=== PATIENT | male | born 1945 | race Caucasian/White ===

== ENCOUNTER 2016-11-19 19:26 | Emergency (ER) | payer BC, MEDICARE ==
[~2016-11-19] VITALS: Ht 182.9 cm; Wt 86.4 kg
[2016-11-19] MEDS ORDERED: VENL-193 PO (19:38)
[2016-11-19] MEDS ORDERED: ABIR500T PO (19:38)
[2016-11-19] MEDS ORDERED: DIVA500T35 PO (19:38)
[2016-11-19] MEDS ORDERED: LAMO100 PO (19:38)
[2016-11-19] MEDS ORDERED: MIDO5 PO (19:38)
[2016-11-19] MEDS ORDERED: PRED5 PO (19:38)
[2016-11-19] MEDS ORDERED: ASPI-1093 PO (19:38)
[2016-11-19 20:00] LABS: EOSINOPHILS # (AUTO) 0.22 K/uL (0.00-0.70); EOSINOPHILS % (AUTO) 3.51 % (1.0-6.0); HEMATOCRIT 33.9 % (41-53); HEMOGLOBIN 11.2 g/dL (13.5-17.5); LYMPHOCYTES # (AUTO) 0.5 K/uL (1.0-4.8); LYMPHOCYTES % (AUTO) 8.7 % (22.0-44.0); MEAN CORPUSCULAR HEMOGLOBIN 31.9 pg (26.0-34.0); MEAN CORPUSCULAR HGB CONC 33.2 G/dL (31.0-37.0); MEAN CORPUSCULAR VOLUME 96 fL (80-100); MONOCYTES # (AUTO) 0.5 K/uL (0.1-1.0); MONOCYTES % (AUTO) 7.6 % (2.0-9.0); NEUTROPHILS % (AUTO) 80.2 % (40.0-70.0); PLATELET COUNT (AUTO) 196 K/uL (150-450); RED BLOOD CELL COUNT(AUTO) 3.52 MIL/uL (4.50-5.90); RED CELL DISTRIBUTION WIDTH 13.9 % (11.5-14.5); WHITE BLOOD COUNT (AUTO) 6.2 K/uL (4.5-11.0)
[2016-11-19 20:10] LABS: ANION GAP 8 mmol/L (8-16); CALCIUM, TOTAL 8.9 mg/dL (8.8-10.5); CARBON DIOXIDE 25 mmol/L (22-29); CHLORIDE 105 mmol/L (98-107); CREATININE 1.51 mg/dL (0.60-1.30); GLOMERULAR FILTR. RATE CALC 46 mL/min (>60); POTASSIUM 3.1 mmol/L (3.5-5.1); SODIUM SERUM 138 mmol/L (136-145); UREA NITROGEN, BLOOD 9 mg/dL (7-18)
[2016-11-19 20:15] LABS: ALANINE AMINOTRANSFERASE 14 U/L (12-78); ALBUMIN 2.9 g/dL (3.4-5.0); ASPARTATE AMINOTRANSFERASE 13 U/L (15-37); BILIRUBIN,TOTAL 0.3 mg/dL (0.1-1.0); TOTAL PROTEIN, SERUM 6.2 g/dL (6.4-8.2)
[2016-11-19 21:35] LABS: RBC MORPHOLOGY COMMENT NORMAL RBC MORPH
[2016-11-19 22:06] VITALS: BP 121/71
== END 2016-11-19 22:15 | disposition home or self-care (01) ==
LOC: EMS 19:28
DX: F32.9 Major depressive disorder, single episode, unspecified (principal); F17.210 Nicotine dependence, cigarettes, uncomplicated; Z79.82 Long term (current) use of aspirin; I95.1 Orthostatic hypotension
CPT/HCPCS: 36415; 80053; 80307; 85025; 99284; G0480

== ENCOUNTER 2016-12-03 14:12 | Inpatient (IN) | payer MEDICARE, BC ==
[~2016-12-03] VITALS: Ht 182.9 cm; Wt 81.3 kg
[~2016-12-03 14:12] MED LIST: ABIR500T PO; ASPI-1093 PO; DIVA500T35 PO; LAMO100 PO; MIDO5 PO; PRED5 PO; VENL-193 PO
[2016-12-03] MEDS ORDERED: LORazepam 2 MG TABLET PO PRN (16:30)
[2016-12-03] MEDS ORDERED: HALOPERIDOL 5 MG TABLET PO PRN (16:30)
[2016-12-03] MEDS ORDERED: ZOLPIDEM TARTRATE 10 MG TABLET PO PRN (16:30)
[2016-12-03 16:42] LABS: BASOPHILS % (AUTO) 1.3 % (0.0-2.0); EOSINOPHILS % (AUTO) 2.5 % (1.0-6.0); HEMATOCRIT 33.6 % (41-53); HEMOGLOBIN 11.4 g/dL (13.5-17.5); LYMPHOCYTES # (AUTO) 1.3 K/uL (1.0-4.8); LYMPHOCYTES % (AUTO) 21.2 % (22.0-44.0); MEAN CORPUSCULAR HEMOGLOBIN 31.5 pg (26.0-34.0); MEAN CORPUSCULAR HGB CONC 33.8 G/dL (31.0-37.0); MEAN CORPUSCULAR VOLUME 93 fL (80-100); MONOCYTES # (AUTO) 0.3 K/uL (0.1-1.0); MONOCYTES % (AUTO) 4.3 % (2.0-9.0); NEUTROPHILS # (AUTO) 4.3 K/uL (1.8-7.7); NEUTROPHILS % (AUTO) 70.7 % (40.0-70.0); PLATELET COUNT (AUTO) 257 K/uL (150-450); RED CELL DISTRIBUTION WIDTH 14.1 % (11.5-14.5); WHITE BLOOD COUNT (AUTO) 6.1 K/uL (4.5-11.0)
[2016-12-03 16:50] LABS: ANION GAP 10 mmol/L (8-16); CALCIUM, TOTAL 9.2 mg/dL (8.8-10.5); CARBON DIOXIDE 24 mmol/L (22-29); CHLORIDE 106 mmol/L (98-107); CREATININE 1.62 mg/dL (0.60-1.30); GLOMERULAR FILTR. RATE CALC 42 mL/min (>60); POTASSIUM 3.6 mmol/L (3.5-5.1); SODIUM SERUM 140 mmol/L (136-145); UREA NITROGEN, BLOOD 15 mg/dL (7-18)
[2016-12-03 16:56] LABS: ALANINE AMINOTRANSFERASE 16 U/L (12-78); ALBUMIN 2.9 g/dL (3.4-5.0); ASPARTATE AMINOTRANSFERASE 14 U/L (15-37); BILIRUBIN,TOTAL 0.3 mg/dL (0.1-1.0); TOTAL PROTEIN, SERUM 6.4 g/dL (6.4-8.2)
[2016-12-03] MEDS ORDERED: LORazepam 2 MG/ML VIAL IM ONE (18:00)
[2016-12-03] MEDS ORDERED: HALOPERIDOL LACTATE 5 MG/ML VIAL IM ONE (18:00)
[2016-12-03] MEDS ORDERED: ACETAMINOPHEN 500 MG TABLET PO ONE (18:15)
[2016-12-03] MEDS ORDERED: ACETAMINOPHEN 325 MG TABLET PO PRN (20:15)
[2016-12-03 21:04] VITALS: BP 141/76
[2016-12-03 22:54] VITALS: BP 140/79
[2016-12-03] MEDS: TraMADol HCL 50 MG TABLET PO PRN (22:56)
[2016-12-04] MEDS: ASPIRIN 81 MG EC TABLET PO SCH (07:30)
[2016-12-04 07:31] LABS: CHOL/HDL RATIO 4.8 (4.2-7.3)
[2016-12-04] MEDS ORDERED: [UNRECOGNIZED DRUG - OTHER] PO SCH (09:00)
[2016-12-04] MEDS: MIDODRINE HCL 5 MG TABLET PO SCH ×2 (09:00→18:25)
[2016-12-04] MEDS: NICOTINE 14 MG/24 HOUR PATCH TD SCH (09:00)
[2016-12-04] MEDS: OLANZapine 10 MG RAPDIS TABLET PO SCH ×2 (10:00→17:00)
[2016-12-04] MEDS ORDERED: HALOPERIDOL LACTATE 5 MG/ML VIAL IM ONE (12:00)
[2016-12-04] MEDS ORDERED: LORazepam 2 MG/ML VIAL IM ONE (12:00)
[2016-12-04] MEDS ORDERED: DiphenhydrAMINE HCL 50 MG/ML VIAL IM ONE (12:00)
[2016-12-04] MEDS ORDERED: HALOPERIDOL LACTATE 5 MG/ML VIAL ONE (12:05)
[2016-12-04] MEDS ORDERED: DiphenhydrAMINE HCL 50 MG/ML VIAL ONE (12:05)
[2016-12-04] MEDS ORDERED: LORazepam 2 MG/ML VIAL ONE (12:05)
[2016-12-04] MEDS: BACITRACIN 28.4 GM OINTMENT TP SCH (12:30)
[2016-12-04] MEDS ORDERED: *PATIENT'S OWN MED [ENTER DRUG, DOSE, FREQUENCY IN COMMENTS] CLINICAL ONE ×2 (14:15)
[2016-12-04] MEDS: PredniSONE 5 MG TABLET PO SCH (17:00)
[2016-12-04 18:26] VITALS: BP 123/76
[2016-12-05] MEDS: ABIRATERONE 250 MG PO SCH (06:21)
[2016-12-05] MEDS: ASPIRIN 81 MG EC TABLET PO SCH (06:23)
[2016-12-05] MEDS: BACITRACIN 28.4 GM OINTMENT TP SCH (09:00)
[2016-12-05] MEDS: OLANZapine 10 MG RAPDIS TABLET PO SCH ×2 (09:00→16:40)
[2016-12-05] MEDS: PredniSONE 5 MG TABLET PO SCH ×2 (10:08→17:17)
[2016-12-05] MEDS: MIDODRINE HCL 5 MG TABLET PO SCH ×2 (10:08→16:33)
[2016-12-05] MEDS: NICOTINE 14 MG/24 HOUR PATCH TD SCH (10:09)
[2016-12-05 19:12] VITALS: BP 145/87
[2016-12-05 21:57] VITALS: BP 139/78
[2016-12-05] MEDS: TraMADol HCL 50 MG TABLET PO PRN (21:57)
[2016-12-06] MEDS: ABIRATERONE 250 MG PO SCH (07:13)
[2016-12-06] MEDS: ASPIRIN 81 MG EC TABLET PO SCH (07:14)
[2016-12-06] MEDS: BACITRACIN 28.4 GM OINTMENT TP SCH (08:12)
[2016-12-06] MEDS: PredniSONE 5 MG TABLET PO SCH ×2 (08:12→19:02)
[2016-12-06] MEDS: MIDODRINE HCL 5 MG TABLET PO SCH ×2 (08:12→19:01)
[2016-12-06] MEDS: NICOTINE 14 MG/24 HOUR PATCH TD SCH (08:12)
[2016-12-06] MEDS: OLANZapine 10 MG RAPDIS TABLET PO SCH ×2 (08:20→17:00)
[2016-12-06 16:57] VITALS: BP 149/97
[2016-12-06] MEDS: TraMADol HCL 50 MG TABLET PO PRN (21:00)
[2016-12-07 03:14] VITALS: BP 145/75
[2016-12-07] MEDS: TraMADol HCL 50 MG TABLET PO PRN ×2 (03:19→12:04)
[2016-12-07] MEDS: ASPIRIN 81 MG EC TABLET PO SCH (06:36)
[2016-12-07] MEDS: ABIRATERONE 250 MG PO SCH (06:38)
[2016-12-07] MEDS: MIDODRINE HCL 5 MG TABLET PO SCH ×2 (08:11→16:14)
[2016-12-07] MEDS: PredniSONE 5 MG TABLET PO SCH ×2 (08:11→16:13)
[2016-12-07] MEDS: NICOTINE 14 MG/24 HOUR PATCH TD SCH (08:12)
[2016-12-07] MEDS: OLANZapine 10 MG RAPDIS TABLET PO SCH ×2 (08:12→16:17)
[2016-12-07] MEDS: BACITRACIN 28.4 GM OINTMENT TP SCH (08:12)
[2016-12-07 12:04] VITALS: BP 156/85
[2016-12-07 16:14] VITALS: BP 146/79
[2016-12-07] MEDS: IBUPROFEN 600 MG TABLET PO PRN (16:14)
[2016-12-07 20:13] VITALS: BP 148/60
[2016-12-08 06:46] VITALS: BP 144/78
[2016-12-08] MEDS: TraMADol HCL 50 MG TABLET PO PRN ×2 (06:46→16:33)
[2016-12-08] MEDS: ABIRATERONE 250 MG PO SCH (06:46)
[2016-12-08] MEDS: ASPIRIN 81 MG EC TABLET PO SCH (06:46)
[2016-12-08 07:47] VITALS: BP 144/82
[2016-12-08 08:30] VITALS: BP 144/82
[2016-12-08] MEDS: PredniSONE 5 MG TABLET PO SCH ×2 (08:40→16:32)
[2016-12-08] MEDS: MIDODRINE HCL 5 MG TABLET PO SCH ×2 (08:40→16:27)
[2016-12-08] MEDS: NICOTINE 14 MG/24 HOUR PATCH TD SCH (08:42)
[2016-12-08] MEDS: OLANZapine 10 MG RAPDIS TABLET PO SCH ×2 (08:42→16:27)
[2016-12-08] MEDS: BACITRACIN 28.4 GM OINTMENT TP SCH (10:50)
[2016-12-08] MEDS: IBUPROFEN 600 MG TABLET PO PRN (10:53)
[2016-12-08] MEDS ORDERED: LAMO25TA66 PO (16:21)
[2016-12-08] MEDS ORDERED: OLAN10TA6 PO (16:22)
[2016-12-08] MEDS ORDERED: PRED5 PO (16:28)
[2016-12-08] MEDS ORDERED: DIVALPROEX SODIUM 500 MG DR TABLET PO SCH (17:00)
[2016-12-08] MEDS ORDERED: LamoTRIgine 25 MG TABLET PO SCH (17:00)
== END 2016-12-08 18:00 | disposition home or self-care (01) | DRG 885 ==
LOC: EMS 14:16 → 3EX 17:45
PROVIDERS: ADMIT Psychiatry & Neurology Child & Adolescent Psychiatry; ATTEND Psychiatry & Neurology Child & Adolescent Psychiatry
PROC: 5A09457 Assistance with Respiratory Ventilation, 24-96 Consecutive Hours, Continuous Positive Airway Pressure (ICD-10-PCS; principal; 2016-12-05)
DX: F25.0 Schizoaffective disorder, bipolar type (principal); E46 Unspecified protein-calorie malnutrition; C79.82 Secondary malignant neoplasm of genital organs; G20 Parkinson's disease; N18.9 Chronic kidney disease, unspecified; G47.33 Obstructive sleep apnea (adult) (pediatric); Z72.0 Tobacco use; D64.9 Anemia, unspecified; M51.26 Other intervertebral disc displacement, lumbar region; S80.211A Abrasion, right knee, initial encounter; S50.812A Abrasion of left forearm, initial encounter; X58.XXXA Exposure to other specified factors, initial encounter; Y92.89 Other specified places as the place of occurrence of the external cause; Z91.14 Patient's other noncompliance with medication regimen; Z68.24 Body mass index [BMI] 24.0-24.9, adult
CPT/HCPCS: 94660; 97161; 99285; G0480; J1200; J1630; J2060

== ENCOUNTER 2017-11-07 19:01 | Emergency (ER) | payer MEDICARE, BC ==
[~2017-11-07] VITALS: Ht 182.9 cm; Wt 84.1 kg
[~2017-11-07 19:01] MED LIST changes: -ABIR500T PO; -ASPI-1093 PO; +ASPI-1182 PO; -LAMO100 PO; +LAMO25TA66 PO; -MIDO5 PO; +MIDO5TAB23 PO; +MUPI1OIN4 NS; -VENL-193 PO
[2017-11-07] MEDS ORDERED: NALO25TA PO (20:15)
[2017-11-07] MEDS ORDERED: DOCU250C91 PO (20:15)
[2017-11-07] MEDS ORDERED: CHOL50004 PO (20:15)
[2017-11-07] MEDS ORDERED: CARB-101 PO (20:15)
[2017-11-07] MEDS ORDERED: VENL50TA44 PO (20:15)
[2017-11-07] MEDS ORDERED: SENN8.6T90 PO (20:15)
[2017-11-07] MEDS ORDERED: QUET100T PO (20:15)
[2017-11-07 20:57] LABS: BASOPHILS % (AUTO) 0.7 % (0.0-2.0); EOSINOPHILS % (AUTO) 0.4 % (1.0-6.0); HEMATOCRIT 30.8 % (41-53); HEMOGLOBIN 10.4 g/dL (13.5-17.5); LYMPHOCYTES # (AUTO) 0.8 K/uL (1.0-4.8); LYMPHOCYTES % (AUTO) 9.2 % (22.0-44.0); MEAN CORPUSCULAR HEMOGLOBIN 34.6 pg (26.0-34.0); MEAN CORPUSCULAR HGB CONC 33.7 G/dL (31.0-37.0); MEAN CORPUSCULAR VOLUME 103 fL (80-100); MONOCYTES # (AUTO) 0.4 K/uL (0.1-1.0); MONOCYTES % (AUTO) 4.7 % (2.0-9.0); NEUTROPHILS # (AUTO) 7.7 K/uL (1.8-7.7); PLATELET COUNT (AUTO) 153 K/uL (150-450); RED CELL DISTRIBUTION WIDTH 15.8 % (11.5-14.5)
[2017-11-07 21:06] LABS: CALCIUM, TOTAL 10.1 mg/dL (8.8-10.5); CREATININE 1.66 mg/dL (0.60-1.30); POTASSIUM 4.1 mmol/L (3.5-5.1)
[2017-11-07 21:15] LABS: ALBUMIN 2.6 g/dL (3.4-5.0); BILIRUBIN,TOTAL 0.4 mg/dL (0.1-1.0); TOTAL PROTEIN, SERUM 6.7 g/dL (6.4-8.2)
[2017-11-07 21:17] LABS: CARBAMAZEPINE (TEGRETOL) 0.3 mcg/mL (4.0-12.0)
[2017-11-07 21:25] LABS: PHENYTOIN (DILANTIN) 1.2 mcg/mL (10.0-20.0)
[2017-11-07 23:37] LABS: APPEARANCE,URINE CLEAR (CLEAR); BILIRUBIN,URINE NEGATIVE (NEGATIVE); GLUCOSE, URINE (UA) NEGATIVE (NEGATIVE); KETONES,URINE TRACE mg/dL (NEGATIVE); LEUKOCYTE ESTERASE ,URINE NEGATIVE (NEGATIVE); NITRATE,URINE NEGATIVE (NEGATIVE); OCCULT BLOOD,URINE NEGATIVE (NEGATIVE); PH,URINE 7.5 (5.0-8.0); PROTEIN,URINE POS 1+ (NEGATIVE); UROBILINOGEN,URINE 0.2 mg/dL (<=1.0)
[2017-11-07 23:41] LABS: AMPHET/METH SCREEN,URINE NEGATIVE (NEGATIVE); BARBITURATE SCREEN, URINE NEGATIVE (NEGATIVE); BENZODIAZEPINES SCREEN,URINE NEGATIVE (NEGATIVE); CANNABINOID SCREEN,URINE NEGATIVE (NEGATIVE); COCAINE SCREEN,URINE NEGATIVE (NEGATIVE); METHADONE SCREEN, URINE NEGATIVE (NEGATIVE); OPIATE SCREEN,URINE NEGATIVE (NEGATIVE)
[2017-11-07 23:42] LABS: PHENCYCLIDINE SCREEN,URINE NEGATIVE (NEGATIVE)
[2017-11-08 00:21] VITALS: BP 122/73
== END 2017-11-08 00:25 | disposition home or self-care (01) ==
LOC: EMS 19:02
DX: G40.909 Epilepsy, unspecified, not intractable, without status epilepticus (principal); D64.9 Anemia, unspecified; F17.210 Nicotine dependence, cigarettes, uncomplicated; F31.9 Bipolar disorder, unspecified; Z79.899 Other long term (current) drug therapy
CPT/HCPCS: 70450; 93005; 99285; 99406

== ENCOUNTER 2017-11-25 10:41 | Inpatient (IN) | payer MEDICARE, BC ==
[~2017-11-25] VITALS: Ht 177.8 cm; Wt 86.0 kg
[~2017-11-25 10:41] MED LIST changes: +CARB-101 PO; +CHOL50004 PO; +DOCU250C91 PO; -MIDO5TAB23 PO; -MUPI1OIN4 NS; +NALO25TA PO; -PRED5 PO; +QUET100T PO; +SENN8.6T90 PO; +VENL50TA44 PO
[2017-11-25] MEDS ORDERED: SODIUM CHLORIDE 0.9% 1,000 ML IV ONE ×2 (10:56→11:45)
[2017-11-25] MEDS ORDERED: ALBUTEROL SULFATE 2.5 MG/0.5 ML NEB SOLUTION NEB ONE (11:00)
[2017-11-25] MEDS ORDERED: IPRATROPIUM BROMIDE 0.5 MG/2.5 ML NEB SOLUTION NEB ONE (11:00)
[2017-11-25] MEDS ORDERED: ACET-48 PO (11:04)
[2017-11-25] MEDS ORDERED: TAMS0.4C32 PO (11:04)
[2017-11-25] MEDS ORDERED: ATOR40TA28 PO (11:04)
[2017-11-25] MEDS ORDERED: MIDO5TAB23 PO (11:04)
[2017-11-25] MEDS ORDERED: OS500 PO (11:04)
[2017-11-25] MEDS ORDERED: OMEG-135 PO (11:04)
[2017-11-25] MEDS ORDERED: NAPR-58 PO (11:15)
[2017-11-25] MEDS ORDERED: HYDR-309 PO (11:15)
[2017-11-25] MEDS ORDERED: MOM30 PO (11:15)
[2017-11-25] MEDS ORDERED: ACETAMINOPHEN 1000 MG/ISO-OSM 100 ML IV ONE (11:45)
[2017-11-25 11:55] LABS: ABG A-A DIFF O2 534.1 mmHg (10-20.0); ABG METHEMOGLOBIN 0.5 % (0.0-1.5); ABG OXYGEN CONTENT 15.3 mL/dL (15.0-23.0); ABG OXYGEN SATURATION 98.6 % (95.0-98.0); ABG OXYHEMOGLOBIN 97.1 % (94.0-100.0); ABG PCO2 41 mmHg (35-45); ABG PH 7.369 (7.35-7.450); O2 DEVICE,BLOOD GAS NON REBREATHER (ROOM AIR); PO2, ARTERIAL BG 135.7 mmHg (75.0-83.0); SITE, BLOOD GAS LFT RADIAL; SOURCE, BLOOD GAS ARTERIAL; TEMPERATURE, FAHRENHEIT, BG 99.9 FAHREN (96.0-98.6)
[2017-11-25] MEDS ORDERED: 0.9% SODIUM CHLORIDE 5 ML NEB SOLUTION NEB ONE (11:57)
[2017-11-25 12:02] LABS: BASOPHILS % (AUTO) 0.3 % (0.0-2.0); EOSINOPHILS % (AUTO) 0 % (1.0-6.0); HEMATOCRIT 32.6 % (41-53); HEMOGLOBIN 10.9 g/dL (13.5-17.5); LYMPHOCYTES # (AUTO) 0.7 K/uL (1.0-4.8); LYMPHOCYTES % (AUTO) 5.6 % (22.0-44.0); MEAN CORPUSCULAR HGB CONC 33.4 G/dL (31.0-37.0); MEAN CORPUSCULAR VOLUME 105 fL (80-100); MONOCYTES # (AUTO) 0.8 K/uL (0.1-1.0); MONOCYTES % (AUTO) 6.6 % (2.0-9.0); PLATELET COUNT (AUTO) 161 K/uL (150-450); RED BLOOD CELL COUNT(AUTO) 3.11 MIL/uL (4.50-5.90); RED CELL DISTRIBUTION WIDTH 15.9 % (11.5-14.5)
[2017-11-25 12:03] LABS: NEUTROPHILS % (AUTO) 87.5 % (40.0-70.0)
[2017-11-25] MEDS ORDERED: AZITHROMYCIN 500 MG/NS 250 ML IV ONE (12:15)
[2017-11-25] MEDS ORDERED: CefTRIAXone SODIUM 1 GM in DEXTROSE 5%-WATER 10 ML IV ONE (12:15)
[2017-11-25] MEDS ORDERED: ACETAMINOPHEN 325 MG TABLET PO PRN ×2 (12:15→16:45)
[2017-11-25] MEDS ORDERED: 0.9% SODIUM CHLORIDE 10 ML SYRINGE IVP PRN (12:15)
[2017-11-25 12:19] LABS: APPEARANCE,URINE CLOUDY (CLEAR); BILIRUBIN,URINE NEGATIVE (NEGATIVE); GLUCOSE, URINE (UA) NEGATIVE (NEGATIVE); KETONES,URINE TRACE mg/dL (NEGATIVE); LEUKOCYTE ESTERASE ,URINE SMALL (NEGATIVE); NITRATE,URINE NEGATIVE (NEGATIVE); OCCULT BLOOD,URINE LARGE (NEGATIVE); PH,URINE 6.5 (5.0-8.0); PROTEIN,URINE SEE CONFIRM (NEGATIVE)
[2017-11-25 12:21] LABS: LACTIC ACID 1.3 mmol/L (0.4-2.0)
[2017-11-25 12:26] LABS: CALCIUM, TOTAL 8.8 mg/dL (8.8-10.5); CREATININE 1.83 mg/dL (0.60-1.30)
[2017-11-25 12:30] LABS: ALBUMIN 1.9 g/dL (3.4-5.0); BILIRUBIN,TOTAL 0.3 mg/dL (0.1-1.0)
[2017-11-25 12:33] LABS: RBC,URINE >100 /HPF (0-2); SULFOSALICYLIC ACID,URINE 3+ (Negative)
[2017-11-25 12:34] LABS: BACTERIA,URINE Few /HPF (None Seen)
[2017-11-25 12:36] LABS: SQUAMOUS EPITHELIAL CELL,UR Rare /LPF (None Seen)
[2017-11-25 16:00] VITALS: BP 140/86
[2017-11-25] MEDS ORDERED: ZOLPIDEM TARTRATE 5 MG TABLET PO PRN (16:45)
[2017-11-25] MEDS ORDERED: *CLINICAL-LEVOFLOXACIN IVPB DOSING CLINICAL ONE (16:45)
[2017-11-25] MEDS ORDERED: MORPHINE SULFATE 2 MG/ML SYRINGE IVP PRN (16:45)
[2017-11-25] MEDS ORDERED: ONDANSETRON HCL 4 MG/2 ML VIAL IVP PRN (16:45)
[2017-11-25] MEDS ORDERED: LORazepam 2 MG/ML VIAL IVP PRN (16:45)
[2017-11-25] MEDS ORDERED: DEXTROSE 5%-0.45% SODIUM CHL 1,000 ML IV ONE (16:45)
[2017-11-25] MEDS ORDERED: BISACODYL 10 MG RECTAL RECTAL SUPPOSITORY PR PRN (16:45)
[2017-11-25] MEDS ORDERED: MAGNESIUM HYDROXIDE SUSPENSION 30 ML UDCUP PO PRN (16:45)
[2017-11-25] MEDS ORDERED: HydrALAZINE HCL 20 MG/ML VIAL IVP PRN (16:45)
[2017-11-25 17:15] LABS: CREATINE KINASE, TOTAL 47 U/L (39-308)
[2017-11-25] MEDS ORDERED: HEPARIN SODIUM 25000 UNITS/D5W 250 ML IV PRN (19:59)
[2017-11-25 20:00] VITALS: BP 145/78
[2017-11-25] MEDS ORDERED: HEPARIN SODIUM,PORCINE 5,000 UNITS/ML VIAL IVP PRN ×2 (20:00)
[2017-11-25] MEDS ORDERED: HEPARIN SODIUM,PORCINE 5,000 UNITS/ML VIAL IVP ONE (20:00)
[2017-11-25] MEDS ORDERED: VANCOMYCIN HCL 1 GM/D5% WATER 200 ML IV ONE (20:30)
[2017-11-25 20:37] LABS: HEMATOCRIT 32.7 % (41-53); HEMOGLOBIN 10.8 g/dL (13.5-17.5); MEAN CORPUSCULAR HEMOGLOBIN 34.6 pg (26.0-34.0); MEAN CORPUSCULAR VOLUME 105 fL (80-100); PLATELET COUNT (AUTO) 143 K/uL (150-450); RED BLOOD CELL COUNT(AUTO) 3.11 MIL/uL (4.50-5.90); RED CELL DISTRIBUTION WIDTH 16.4 % (11.5-14.5)
[2017-11-25 20:48] LABS: INR 1.2 (0.9-1.1)
[2017-11-25] MEDS: DOCUSATE SODIUM 100 MG CAPSULE PO SCH (21:09)
[2017-11-25] MEDS: MIDODRINE HCL 5 MG TABLET PO SCH (21:09)
[2017-11-25] MEDS: CALCIUM OYSTER SHELL 500 MG TABLET PO SCH (21:10)
[2017-11-25] MEDS: CARBIDOPA/LEVODOPA 25-100 MG TABLET PO SCH (21:10)
[2017-11-25] MEDS: TAMSULOSIN HCL 0.4 MG CAPSULE PO SCH (21:10)
[2017-11-25] MEDS: LamoTRIgine 100 MG TABLET PO SCH (21:10)
[2017-11-25] MEDS: DIVALPROEX SODIUM 500 MG DR TABLET PO SCH (21:10)
[2017-11-25] MEDS: ATORVASTATIN CALCIUM 40 MG TABLET PO SCH (21:10)
[2017-11-25 21:31] LABS: BAND NEUTROPHILS % (MANUAL) 19 % (0-5); LYMPHOCYTES % (MANUAL) 10 % (22-44); MONOCYTES % (MANUAL) 6 % (2-9); PLATELET MORPHOLOGY COMMENT GIANT PLTS PRESENT; SEGMENTED NEUTROPHILS % 65 % (40-70); WBC MORPHOLOGY TOXIC VACUOLATION
[2017-11-25] MEDS: PIPERACILLIN SODIUM/TAZOBACTAM 2.25 GM in DEXTROSE 5%-WATER 50 ML IV SCH (22:30)
[2017-11-25 23:46] LABS: CREATINE KINASE, TOTAL 58 U/L (39-308)
[2017-11-26] VITALS (7 sets, daily range): BP systolic 95–160; BP diastolic 59–97
[2017-11-26] MEDS ORDERED: HEPARIN SODIUM,PORCINE 5,000 UNITS/ML VIAL SQ SCH
[2017-11-26] MEDS: PIPERACILLIN SODIUM/TAZOBACTAM 2.25 GM in DEXTROSE 5%-WATER 50 ML IV SCH ×4 (03:52→22:24)
[2017-11-26 05:22] LABS: HEMATOCRIT 30.3 % (41-53); MEAN CORPUSCULAR HEMOGLOBIN 34.7 pg (26.0-34.0); MEAN CORPUSCULAR HGB CONC 33.2 G/dL (31.0-37.0); MEAN CORPUSCULAR VOLUME 105 fL (80-100); PLATELET COUNT (AUTO) 143 K/uL (150-450)
[2017-11-26 05:27] LABS: ALANINE AMINOTRANSFERASE 3 U/L (12-78); ALBUMIN 1.7 g/dL (3.4-5.0); ALKALINE PHOSPHATASE 54 U/L (46-116); ANION GAP 6 mmol/L (8-16); ASPARTATE AMINOTRANSFERASE 10 U/L (15-37); BILIRUBIN,TOTAL 0.3 mg/dL (0.1-1.0); CALCIUM, TOTAL 8.8 mg/dL (8.8-10.5); CARBON DIOXIDE 25 mmol/L (22-29); CHLORIDE 116 mmol/L (98-107); CREATINE KINASE, TOTAL 44 U/L (39-308); CREATININE 1.55 mg/dL (0.60-1.30); GLOMERULAR FILTR. RATE CALC 44 mL/min (>60); GLUCOSE,RANDOM 191 mg/dL (70-110); PHOSPHORUS 1.9 mg/dL (2.5-4.9); POTASSIUM 3.6 mmol/L (3.5-5.1); SODIUM SERUM 147 mmol/L (136-145); THYROID STIMULATING HORMONE 0.87 uIU/mL (0.36-3.74); TOTAL PROTEIN, SERUM 5.9 g/dL (6.4-8.2); UREA NITROGEN, BLOOD 21 mg/dL (7-18)
[2017-11-26 05:44] LABS: B-TYPE NATRIURETIC PEPTIDE 110 pg/mL (0-100)
[2017-11-26] MEDS: VANCOMYCIN HCL 1 GM/D5% WATER 200 ML IV SCH (08:22)
[2017-11-26 08:25] LABS: ABG BASE EXCESS -4.4 mmol/L (-2.0-3.0); ABG CARBOXYHEMOGLOBIN 0.3 % (0.0-1.5); ABG HCO3 21.4 mmol/L (22.0-26.0); ABG METHEMOGLOBIN 0.1 % (0.0-1.5); ABG OXYGEN SATURATION 96.2 % (95.0-98.0); ABG OXYHEMOGLOBIN 95.8 % (94.0-100.0); ABG PCO2 31 mmHg (35-45); ABG PH 7.425 (7.35-7.450); ABG TOTAL HEMOGLOBIN 10.3 G/dL (12.0-18.0); O2 DEVICE,BLOOD GAS BIPAP (ROOM AIR); PO2, ARTERIAL BG 81.2 mmHg (75.0-83.0); SITE, BLOOD GAS RT RADIAL; SOURCE, BLOOD GAS ARTERIAL; TEMPERATURE, FAHRENHEIT, BG 98.9 FAHREN (96.0-98.6)
[2017-11-26 08:27] LABS: BAND NEUTROPHILS % (MANUAL) 18 % (0-5); LYMPHOCYTES % (MANUAL) 3 % (22-44); MONOCYTES % (MANUAL) 1 % (2-9); SEGMENTED NEUTROPHILS % 78 % (40-70)
[2017-11-26] MEDS: LamoTRIgine 100 MG TABLET PO SCH ×2 (09:00→20:32)
[2017-11-26] MEDS: MIDODRINE HCL 5 MG TABLET PO SCH ×2 (09:00→20:32)
[2017-11-26] MEDS: DIVALPROEX SODIUM 500 MG DR TABLET PO SCH ×2 (10:10→20:32)
[2017-11-26] MEDS: CARBIDOPA/LEVODOPA 25-100 MG TABLET PO SCH ×2 (10:10→20:31)
[2017-11-26] MEDS: DOCUSATE SODIUM 100 MG CAPSULE PO SCH ×2 (10:11→20:32)
[2017-11-26] MEDS: CALCIUM OYSTER SHELL 500 MG TABLET PO SCH ×2 (10:11→20:31)
[2017-11-26] MEDS: PANTOPRAZOLE SODIUM 40 MG DR TABLET PO SCH (10:12)
[2017-11-26] MEDS: CHOLECALCIFEROL (VIT D3) 5,000 UNITS CAPSULE PO SCH (10:12)
[2017-11-26] MEDS: ASPIRIN 81 MG EC TABLET PO SCH (10:12)
[2017-11-26] MEDS ORDERED: CefTRIAXone SODIUM 1 GM in DEXTROSE 5%-WATER 10 ML IV SCH (13:00)
[2017-11-26] MEDS ORDERED: SODIUM CHLORIDE 0.9% 500 ML IV ONE (13:27)
[2017-11-26] MEDS: AZITHROMYCIN 500 MG/NS 250 ML IV SCH (14:09)
[2017-11-26] MEDS: ATORVASTATIN CALCIUM 40 MG TABLET PO SCH (20:31)
[2017-11-26] MEDS: TAMSULOSIN HCL 0.4 MG CAPSULE PO SCH (20:32)
[2017-11-27] MEDS: PIPERACILLIN SODIUM/TAZOBACTAM 2.25 GM in DEXTROSE 5%-WATER 50 ML IV SCH ×4 (04:23→22:40)
[2017-11-27 07:44] VITALS: BP 162/74
[2017-11-27] MEDS: VANCOMYCIN HCL 1 GM/D5% WATER 200 ML IV SCH (09:26)
[2017-11-27] MEDS: CARBIDOPA/LEVODOPA 25-100 MG TABLET PO SCH ×2 (09:35→19:52)
[2017-11-27] MEDS: DIVALPROEX SODIUM 500 MG DR TABLET PO SCH ×2 (09:35→19:51)
[2017-11-27] MEDS: CALCIUM OYSTER SHELL 500 MG TABLET PO SCH ×2 (09:35→19:51)
[2017-11-27] MEDS: DOCUSATE SODIUM 100 MG CAPSULE PO SCH ×2 (09:36→19:51)
[2017-11-27] MEDS: PANTOPRAZOLE SODIUM 40 MG DR TABLET PO SCH (09:36)
[2017-11-27] MEDS: CHOLECALCIFEROL (VIT D3) 5,000 UNITS CAPSULE PO SCH (09:36)
[2017-11-27] MEDS: MIDODRINE HCL 5 MG TABLET PO SCH ×2 (09:36→19:51)
[2017-11-27] MEDS: LamoTRIgine 100 MG TABLET PO SCH ×2 (09:37→19:51)
[2017-11-27] MEDS: ASPIRIN 81 MG EC TABLET PO SCH (09:40)
[2017-11-27 11:14] LABS: CALCIUM, TOTAL 9.4 mg/dL (8.8-10.5); CREATININE 1.56 mg/dL (0.60-1.30)
[2017-11-27 11:17] LABS: POTASSIUM 2.8 mmol/L (3.5-5.1)
[2017-11-27] MEDS ORDERED: LAMO100 PO (11:30)
[2017-11-27] MEDS ORDERED: VENL-193 PO (11:30)
[2017-11-27 11:40] VITALS: BP 156/100
[2017-11-27] MEDS ORDERED: DEXTROSE 10%-WATER 1,000 ML IV ONE (13:30)
[2017-11-27 15:38] VITALS: BP 163/90
[2017-11-27] MEDS: POTASSIUM CHL 10 MEQ/WATER 50 ML IV SCH ×3 (16:00→22:40)
[2017-11-27] MEDS: AZITHROMYCIN 500 MG/NS 250 ML IV SCH (17:37)
[2017-11-27] MEDS: ATORVASTATIN CALCIUM 40 MG TABLET PO SCH (19:51)
[2017-11-27] MEDS: TAMSULOSIN HCL 0.4 MG CAPSULE PO SCH (19:52)
[2017-11-27 20:04] VITALS: BP 161/92
[2017-11-28 00:21] VITALS: BP 124/72
[2017-11-28] MEDS: POTASSIUM CHL 10 MEQ/WATER 50 ML IV SCH (02:15)
[2017-11-28 04:45] VITALS: BP 154/73
[2017-11-28] MEDS: PIPERACILLIN SODIUM/TAZOBACTAM 2.25 GM in DEXTROSE 5%-WATER 50 ML IV SCH ×4 (04:51→22:10)
[2017-11-28 07:05] LABS: CALCIUM, TOTAL 9.2 mg/dL (8.8-10.5); CREATININE 1.39 mg/dL (0.60-1.30); POTASSIUM 3.2 mmol/L (3.5-5.1)
[2017-11-28 07:34] VITALS: BP 161/78
[2017-11-28] MEDS: VANCOMYCIN HCL 1 GM/D5% WATER 200 ML IV SCH (08:17)
[2017-11-28] MEDS: CHOLECALCIFEROL (VIT D3) 5,000 UNITS CAPSULE PO SCH (08:18)
[2017-11-28] MEDS: CARBIDOPA/LEVODOPA 25-100 MG TABLET PO SCH ×2 (08:18→20:42)
[2017-11-28] MEDS: DIVALPROEX SODIUM 500 MG DR TABLET PO SCH ×2 (08:19→20:43)
[2017-11-28] MEDS: DOCUSATE SODIUM 100 MG CAPSULE PO SCH ×2 (08:19→20:43)
[2017-11-28] MEDS: PANTOPRAZOLE SODIUM 40 MG DR TABLET PO SCH (08:19)
[2017-11-28] MEDS: CALCIUM OYSTER SHELL 500 MG TABLET PO SCH ×2 (08:19→20:43)
[2017-11-28] MEDS: ASPIRIN 81 MG EC TABLET PO SCH (08:19)
[2017-11-28] MEDS: LamoTRIgine 100 MG TABLET PO SCH ×2 (08:19→20:43)
[2017-11-28] MEDS: MIDODRINE HCL 5 MG TABLET PO SCH ×2 (08:29→21:00)
[2017-11-28] MEDS ORDERED: POTASSIUM CHLORIDE 10% 40 MEQ/30 ML LIQUID UDCUP PO ONE (10:00)
[2017-11-28] MEDS: HYDROCODONE/ACETAMINOPHEN 5-325 MG TABLET PO PRN ×2 (11:08→22:20)
[2017-11-28] MEDS ORDERED: AmLODIPine BESYLATE 5 MG TABLET PO ONE (12:30)
[2017-11-28] MEDS: AZITHROMYCIN 500 MG/NS 250 ML IV SCH (14:40)
[2017-11-28 15:34] VITALS: BP 159/99
[2017-11-28 20:09] VITALS: BP 184/99
[2017-11-28] MEDS: ATORVASTATIN CALCIUM 40 MG TABLET PO SCH (20:43)
[2017-11-28] MEDS: TAMSULOSIN HCL 0.4 MG CAPSULE PO SCH (20:43)
[2017-11-29 00:06] VITALS: BP 148/92
[2017-11-29] MEDS ORDERED: SODIUM CHLORIDE 0.9% 100 ML ONE (03:52)
[2017-11-29] MEDS: PIPERACILLIN SODIUM/TAZOBACTAM 2.25 GM in DEXTROSE 5%-WATER 50 ML IV SCH ×2 (03:54→11:05)
[2017-11-29 06:00] VITALS: BP 111/74
[2017-11-29 07:40] LABS: CALCIUM, TOTAL 9.3 mg/dL (8.8-10.5); CREATININE 1.33 mg/dL (0.60-1.30); POTASSIUM 3.8 mmol/L (3.5-5.1); VANCOMYCIN,RANDOM 15.4 mcg/mL (25.0-50.0)
[2017-11-29 07:41] VITALS: BP 123/56
[2017-11-29] MEDS ORDERED: AmLODIPine BESYLATE 5 MG TABLET PO SCH (09:00)
[2017-11-29] MEDS: VANCOMYCIN HCL 1 GM/D5% WATER 200 ML IV SCH (09:15)
[2017-11-29] MEDS: MIDODRINE HCL 5 MG TABLET PO SCH (09:17)
[2017-11-29] MEDS: CALCIUM OYSTER SHELL 500 MG TABLET PO SCH (09:17)
[2017-11-29] MEDS: DOCUSATE SODIUM 100 MG CAPSULE PO SCH (09:17)
[2017-11-29] MEDS: PANTOPRAZOLE SODIUM 40 MG DR TABLET PO SCH (09:17)
[2017-11-29] MEDS: CHOLECALCIFEROL (VIT D3) 5,000 UNITS CAPSULE PO SCH (09:17)
[2017-11-29] MEDS: ASPIRIN 81 MG EC TABLET PO SCH (09:17)
[2017-11-29] MEDS: CARBIDOPA/LEVODOPA 25-100 MG TABLET PO SCH (09:18)
[2017-11-29] MEDS: DIVALPROEX SODIUM 500 MG DR TABLET PO SCH (09:19)
[2017-11-29] MEDS: LamoTRIgine 100 MG TABLET PO SCH (09:19)
[2017-11-29 11:39] VITALS: BP 151/93
[2017-11-29] MEDS ORDERED: VANCOMYCIN HCL 500 MG in DEXTROSE 5%-WATER 100 ML IV ONE (12:00)
[2017-11-29 15:51] VITALS: BP 131/75
[2017-11-30] MEDS ORDERED: VANCOMYCIN HCL 1.5 GM in DEXTROSE 5%-WATER 250 ML IV SCH (08:00)
== END 2017-11-29 16:55 | DRG 871 ==
LOC: EMS 10:42 → ICU 14:06 → 6N 11-26 15:40
PROVIDERS: ADMIT Internal Medicine; ATTEND Internal Medicine
PROC: 5A09357 Assistance with Respiratory Ventilation, Less than 24 Consecutive Hours, Continuous Positive Airway Pressure (ICD-10-PCS; principal; 2017-11-25)
DX: A41.9 Sepsis, unspecified organism (principal); E43 Unspecified severe protein-calorie malnutrition; G93.41 Metabolic encephalopathy; J96.01 Acute respiratory failure with hypoxia; N39.0 Urinary tract infection, site not specified; E87.0 Hyperosmolality and hypernatremia; E87.1 Hypo-osmolality and hyponatremia; C79.51 Secondary malignant neoplasm of bone; Z66 Do not resuscitate; Z51.5 Encounter for palliative care; G47.33 Obstructive sleep apnea (adult) (pediatric); N19 Unspecified kidney failure; G40.909 Epilepsy, unspecified, not intractable, without status epilepticus; G20 Parkinson's disease; F31.9 Bipolar disorder, unspecified; F17.200 Nicotine dependence, unspecified, uncomplicated; E86.0 Dehydration; Z82.49 Family history of ischemic heart disease and other diseases of the circulatory system; Z85.46 Personal history of malignant neoplasm of prostate
CPT/HCPCS: 70450; 71250; 72192; 74150; 82270; 82805; 83605; 83735; 84100; 84443; 87040; 87081; 87086; 93005; 93306; 93970; 94640; 94660; 96361; 96365; 96368; 99291; J0131; J0456; J0696; J1644; J2405; J2543; J3370; J3480; J7030; J7040; J7050; J7060